=== PATIENT | female | born 1970 | race Caucasian/White ===

== ENCOUNTER 2018-05-14 06:21 | Day surgery (SDC) | payer OTHER ==
[2018-05-13 15:55] LABS: Absolute Lymphocytes (CBC) 2.2 K/uL (0.7-4.9); Absolute Monocytes 0.6 K/uL (0.1-1.3); Absolute Neutrophil 5.5 K/uL (1.8-8.0); Basophils % 0.6 % (0-1.3); Eosinophils % 0.6 % (0-4.4); Hematocrit 41.8 % (36.0-45.0); Lymphocytes % 25.7 % (15.3-44.8); MCH 30.9 pg (27.0-35.0); MCV 88.4 fL (80-100); MPV 9.2 fL (7.6-11.3); Monocytes % 7.4 % (3.3-12.3); RBC Red Blood Cell Count 4.73 M/uL (3.86-4.86)
[2018-05-14] MEDS ORDERED: CEFAZOLIN/SWI 1gm 1 GM/10 ML SYR IV SCH (06:30)
[2018-05-14] MEDS ORDERED: CEFAZOLIN/SWI 1gm 1 GM/10 ML SYR ONE (06:39)
[2018-05-14] MEDS ORDERED: Ringers Lactate 1,000 ML IV ONE ×2 (06:39→08:27)
[2018-05-14] MEDS ORDERED: BUPIVACAINE 0.5% PF 10 ML VIAL ONE (06:57)
[2018-05-14] MEDS ORDERED: PROPOFOL 200 MG/20 ML VIAL IV ONE (07:06)
[2018-05-14] MEDS ORDERED: MIDAZOLAM HCL 2 MG/2 ML INJ ONE ×2 (07:07)
[2018-05-14] MEDS ORDERED: FENTANYL CITR 100 MCG/2 ML ONE (07:07)
[2018-05-14] MEDS ORDERED: HYDROCODONE/APAP 7.5/325 MG TAB ONE (08:16)
--- NOTE | 2018-05-14 18:36 | OP ---
Date of Procedure: 05/14/2018 Surgeon: Scott Cody MD Preoperative Diagnosis: Poor IV access, status post Port-A-Cath placement. Postoperative Diagnosis: Poor IV access, status post Port-A-Cath placement. Procedure: Removal of right chest Port-A-Cath. Estimated Blood Loss: Minimal. Specimen: Port-A-Cath device. Findings: Normal anatomy. Anesthesia: MAC. Complications: None. Disposition: The patient tolerated the procedure in stable condition and was taken to recovery in go od general condition. Procedure In Detail: The patient was brought to the OR and placed in supine position. MAC anesthesi a was begun. The patient was prepped and draped in the sterile fashion. Marcaine 0.5% was infiltrat ed locally. A 15-blade was used to make a 3 cm incision on the right anterior chest. Subcutaneous t issue divided. The Port-A-Cath device was identified and freed from the surrounding tissue with michelle p and blunt dissection, removed, and sent to Pathology for identification. Wound irrigated. Bleedin g controlled with cautery. A 3-0 chromic used to approximate the subcutaneous tissue and close the s kin. Sterile dressing was applied. The patient was awakened and taken to Recovery in good general c ondition. Discharge Note: The patient will go to Day Surgery and home when stable. Disposition: Home. Condition: Stable. Discharge Instructions: Resume home medications and diet. Activity as tolerated. No heavy lifting. Remove outer dressing in 2 days. Shower. Keep wound clean and dry. Keep Steri-Strips on at all t imes. Tylenol No. 3 one tablet p.o. q.4 p.r.n. pain. Follow up in my office in 2 weeks. Call for a ppointment. /MODL Voice ID: [id number] Report ID: [id number]
== END 2018-05-14 08:39 | disposition home or self-care (01) ==
LOC: OR 06:21
PROVIDERS: ATTEND Surgery
PROC: 02PY33Z Removal of Infusion Device from Great Vessel, Percutaneous Approach (ICD-10-PCS; 2018-05-14)
PROC: 0JPT0WZ Removal of Totally Implantable Vascular Access Device from Trunk Subcutaneous Tissue and Fascia, Open Approach (ICD-10-PCS; principal; 2018-05-14 07:30)
DX: Z45.2 Encounter for adjustment and management of vascular access device (principal); E07.9 Disorder of thyroid, unspecified; Z98.84 Bariatric surgery status
CPT/HCPCS: 36415; 85025; 88300; J0690; J2250; J3010

== ENCOUNTER 2018-09-06 17:10 | Emergency (ER) | payer OTHER ==
[2018-09-06] MEDS ORDERED: MAGNE/ALUM HYDROXD 30 ML UCUP ONE (18:07)
[2018-09-06] MEDS ORDERED: ONDANSETRON 4 MG/2 ML VIAL ONE ×2 (18:08→19:41)
[2018-09-06] MEDS ORDERED: FAMOTIDINE 20 MG/2 ML VIAL IV ONE (18:08)
[2018-09-06] MEDS ORDERED: LIDOCAINE VISCOUS 2% SOLN 15 ML UDC ONE (18:08)
[2018-09-06] MEDS ORDERED: NA CHLORIDE 0.9% 1,000 ML ONE (18:08)
[2018-09-06 18:23] LABS: Absolute Lymphocytes (CBC) 1.1 K/uL (0.7-4.9); Absolute Neutrophil 10.6 K/uL (1.8-8.0); Basophils % 0.3 % (0-1.3); Eosinophils % 0.6 % (0-4.4); Hematocrit 45.7 % (36.0-45.0); Lymphocytes % 8.5 % (15.3-44.8); MPV 8.4 fL (7.6-11.3); Monocytes % 7.7 % (3.3-12.3); RBC Red Blood Cell Count 5.16 M/uL (3.86-4.86)
[2018-09-06 18:33] LABS: Protime INR 1.01
[2018-09-06 18:43] LABS: ALT/SGPT 17 U/L (12-78); AST/SGOT 16 U/L (15-37); Albumin 3.6 g/dL (3.4-5.0); Alkaline Phosphatase 70 U/L (45-117); BUN Blood Urea Nitrogen 11 mg/dL (7-18); Bicarbonate 26 mmol/L (21-32); Bilirubin Direct 0.1 mg/dL (0-0.2); Bilirubin Total 0.5 mg/dL (0.2-1.0); Glucose Level 103 mg/dL (74-106); Magnesium 2.1 mg/dL (1.8-2.4); NT PRO-BNP 105 pg/mL (<125); Potassium 3.9 mmol/L (3.5-5.1); Protein, Total 7.2 g/dL (6.4-8.2); Sodium Level 139 mmol/L (136-145); Troponin (Emerg Dept Use Only) < 0.02 ng/mL (0.0-0.045)
--- NOTE | 2018-09-06 18:50 | RAD REPORT ---
EXAM DESCRIPTION: Brooks Single View09/06/2018 6:02 pm CLINICAL HISTORY: Chest pain COMPARISON: none FINDINGS: The lungs appear clear of acute infiltrate. The heart is normal size IMPRESSION: No acute abnormalities displayed
--- NOTE | 2018-09-06 20:56 | EDPHYS ---
Physician Documentation [facility] Name: Laura Mukherjee Age: 48 yrs Sex: Female : 1970 Arrival Date: 09/06/2018 Time: 17:11 Bed 27 Private MD: Basilio Martínez V ED Physician Adilene Kruse HPI: 09/06 17:46 This 48 yrs old Female presents to ER via Wheelchair with complaints of Chest ma2 Pressure, Jaw Pain, Diarrhea. 17:46 The patient or guardian reports chest pain that is located primarily in the epigastric ma2 area. Onset: gradually, 3 hour(s) ago. The pain does not radiate. The chest pain is described as burning. Duration: The patient or guardian reports a single episode. Severity of pain: At its worst the pain was moderate in the emergency department the pain is unchanged. 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 - Social history:: Smoking status: Patient/guardian denies using tobacco, Patient/guardian denies using alcohol, street drugs, The patient lives with family. - Ebola Screening: : No symptoms or risks identified at this time. - Family history:: not pertinent. ROS: 17:46 Constitutional: Negative for fever, chills, and weight loss, Eyes: Negative for injury, ma2 pain, redness, and discharge, : Negative for injury, bleeding, discharge, and swelling. 17:46 Cardiovascular: Positive for Negative for chest pain, edema, palpitations, acute changes. 17:46 Abdomen/GI: Positive for abdominal pain, nausea, vomiting, and diarrhea, Negative for abdominal pain, nausea and vomiting, vomiting, diarrhea, abdominal cramps, rectal pain, bowel incontinence, acute changes. 17:46 All other systems are negative. Exam: 17:46 Constitutional: This is a well developed, well nourished patient who is awake, alert, ma2 and in no acute distress. Chest/axilla: Normal chest wall appearance and motion. Nontender with no deformity. No lesions are appreciated. Cardiovascular: Regular rate and rhythm with a normal S1 and S2. No gallops, murmurs, or rubs. Normal PMI, no JVD. No pulse deficits. Respiratory: Lungs have equal breath sounds bilaterally, clear to auscultation and percussion. No rales, rhonchi or wheezes noted. No increased work of breathing, no retractions or nasal flaring. Abdomen/GI: Soft, non-tender, with normal bowel sounds. No distension or tympany. No guarding or rebound. No evidence of tenderness throughout. MS/ Extremity: Pulses equal, no cyanosis. Neurovascular intact. Full, normal range of motion. Neuro: Awake and alert, GCS 15, oriented to person, place, time, and situation. Cranial nerves II-XII grossly intact. Motor strength 5/5 in all extremities. Sensory grossly intact. Cerebellar exam normal. Normal gait. Vital Signs: 17:22 BP 160 / 84; Pulse 102; Resp 18 S; Temp 98.2(TE); Pulse Ox 98% on R/A; Weight 102.51 kg aa5 (R); Height 5 ft. 6 in. (167.64 cm) (R); Pain 3/10; 18:30 BP 162 / 90; Pulse 100; Resp 19; Pulse Ox 99% on R/A; kr2 19:30 BP 148 / 87; Pulse 94; Resp 17; Pulse Ox 100% ; kr2 21:13 BP 154 / 82; Pulse 98; Resp 17; Pulse Ox 99% on R/A; kr2 17:22 Body Mass Index 36.48 (102.51 kg, 167.64 cm) aa5 MDM: 17:28 Patient medically screened. ma2 17:46 Differential diagnosis: abnormal EKG, congestive heart failure cholecystitis, ma2 gastroesophageal reflux disease (GERD), stable angina. The patient's pulmonary embolism risk score was calculated as follows: No Risks (0 Pts). RONN Risk Score: not applicable. 20:55 Data reviewed: vital signs, nurses notes, lab test result(s), EKG, radiologic studies. ma2 Counseling: I had a detailed discussion with the patient and/or guardian regarding: the historical points, exam findings, and any diagnostic results supporting the discharge/admit diagnosis, the presence of at least one elevated blood pressure reading (>120/80) during this emergency department visit, the need for outpatient follow up. 09/06 17:35 Order name: Basic Metabolic Panel; Complete Time: 19:12 ma2 09/06 17:35 Order name: CBC with Diff; Complete Time: 18:32 ma2 09/06 17:35 Order name: LFT's; Complete Time: 19:12 ma2 09/06 17:35 Order name: Magnesium; Complete Time: 19:12 ma2 09/06 17:35 Order name: NT PRO-BNP; Complete Time: 19:12 ma2 09/06 17:35 Order name: PT-INR; Complete Time: 18:39 ma2 09/06 17:35 Order name: Troponin (emerg Dept Use Only); Complete Time: 19:12 ma2 09/06 17:35 Order name: XRAY Chest (1 view); Complete Time: 19:12 ma2 09/06 19:47 Order name: Troponin (emerg Dept Use Only); Complete Time: 20:55 ma2 09/06 17:35 Order name: EKG; Complete Time: 17:35 ma2 09/06 17:35 Order name: Cardiac monitoring; Complete Time: 18:34 ma2 09/06 17:35 Order name: EKG - Nurse/Tech; Complete Time: 17:37 ma2 09/06 17:35 Order name: IV Saline Lock; Complete Time: 18:34 ma2 09/06 17:35 Order name: Labs collected and sent; Complete Time: 18:34 ma2 09/06 17:35 Order name: O2 Per Protocol; Complete Time: 18:34 ma2 09/06 17:35 Order name: O2 Sat Monitoring; Complete Time: 18:34 ma2 Administered Medications: 18:33 Drug: Pepcid 20 mg Route: IVP; Site: right forearm; mg2 19:30 Follow up: Response: No adverse reaction; Pain is decreased kr2 18:33 Drug: GI Cocktail without - (Maalox Suspension 30 ml, Lidocaine Liquid 2 % 15 mg2 ml) Route: PO; 19:30 Follow up: Response: No adverse reaction; Pain is decreased kr2 18:33 Drug: Zofran 4 mg Route: IVP; Site: right forearm; mg2 19:00 Follow up: Response: No adverse reaction kr2 18:34 Drug: NS 0.9% 1000 ml Route: IV; Rate: 1 bolus; Site: right forearm; mg2 19:45 Follow up: Response: No adverse reaction; IV Status: Completed infusion kr2 19:34 Drug: Zofran 4 mg Route: IVP; Site: right forearm; kr2 20:00 Follow up: Response: No adverse reaction; Nausea is decreased kr2 Disposition: 09/06/18 20:55 Discharged to Home. Impression: Diarrhea, unspecified. - Condition is Stable. - Discharge Instructions: Diarrhea, Adult. - Prescriptions for Tylenol- Codeine #3 300-30 mg Oral Tablet - take 2 tablet by ORAL route every 6 hours As needed; 30 tablet. Zofran 4 mg Oral Tablet - take 1 tablet by ORAL route every 12 hours As needed; 20 tablet. - Medication Reconciliation Form, Thank You Letter, Antibiotic Education, Prescription Opioid Use form. - Follow up: Private Physician; When: Tomorrow; Reason: Continuance of care. Signatures: Dispatcher [employer] EDHoney Nathan RN RN aa5 Amber Ballesteros RN RN kr2 Adilene Kruse MD MD ma2 Tex Jung RN RN mg2 Corrections: (The following items were deleted from the chart) 21:16 20:55 09/06/2018 20:55 Discharged to Home. Impression: Diarrhea, unspecified. Condition kr2 is Stable. Forms are Medication Reconciliation Form, Thank You Letter, Antibiotic Education, Prescription Opioid Use. Follow up: Private Physician; When: Tomorrow; Reason: Continuance of care. ma2
--- NOTE | 2018-09-06 20:56 | ER ---
Nurse's Notes [facility] Name: Laura Mukherjee Age: 48 yrs Sex: Female : 1970 Arrival Date: 09/06/2018 Time: 17:11 Bed 27 Private MD: Basilio Martínez V Diagnosis: Diarrhea, unspecified Presentation: 09/06 17:20 Presenting complaint: Patient states: chest pain, left jaw, and left ear pain that aa5 began 30 minutes ago. 17:20 Transition of care: patient was not received from another setting of care. Onset of aa5 symptoms was September 06, 2018. Risk Assessment: Do you want to hurt yourself or someone else? Patient reports no desire to harm self or others. Initial Sepsis Screen: Does the patient meet any 2 criteria? No. Patient's initial sepsis screen is negative. Does the patient have a suspected source of infection? No. Patient's initial sepsis screen is negative. Care prior to arrival: None. 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 - Social history:: Smoking status: Patient/guardian denies using tobacco, Patient/guardian denies using alcohol, street drugs, The patient lives with family. - Ebola Screening: : No symptoms or risks identified at this time. - Family history:: not pertinent. Screenin:35 Abuse screen: Denies threats or abuse. Denies injuries from another. Nutritional mg2 screening: No deficits noted. Tuberculosis screening: No symptoms or risk factors identified. Fall Risk IV access (20 points). Assessment: 17:40 General: Appears in no apparent distress. uncomfortable, well groomed, well developed, kr2 well nourished, Behavior is cooperative, crying. Pain: Complains of pain in chest Pain radiates to jaw Pain currently is 8 out of 10 on a pain scale. Quality of pain is described as burning, pressure, Pain began gradually, Is continuous, Alleviated by nothing. Neuro: Level of Consciousness is awake, alert, obeys commands, Oriented to person, place, time, situation, Appropriate for age. Cardiovascular: Heart tones S1 S2 present Capillary refill < 3 seconds in bilateral fingers Patient's skin is warm and dry. Rhythm is sinus rhythm. Respiratory: Airway is patent Respiratory effort is even, unlabored, Respiratory pattern is regular, symmetrical. GI: Abdomen is flat, non-distended, Bowel sounds present X 4 quads. Reports belching a lot. : Denies burning with urination. EENT: Oral mucosa is moist. Derm: Skin is intact, is healthy with good turgor, Skin is pink, warm \T\ dry. Musculoskeletal: Circulation, motion, and sensation intact. 18:38 Reassessment: Patient appears in no apparent distress at this time. Patient and/or kr2 family updated on plan of care and expected duration. Pain level reassessed. Patient is alert, oriented x 3, equal unlabored respirations, skin warm/dry/pink. Patient states feeling better. 19:30 Reassessment: Patient appears in no apparent distress at this time. Patient and/or kr2 family updated on plan of care and expected duration. Pain level reassessed. Patient is alert, oriented x 3, equal unlabored respirations, skin warm/dry/pink. Patient denies pain at this time. Patient states feeling better. 20:30 Reassessment: Patient appears in no apparent distress at this time. Patient and/or kr2 family updated on plan of care and expected duration. Pain level reassessed. Patient is alert, oriented x 3, equal unlabored respirations, skin warm/dry/pink. Patient states feeling better. 21:13 Reassessment: Patient appears in no apparent distress at this time. Patient and/or kr2 family updated on plan of care and expected duration. Pain level reassessed. Patient is alert, oriented x 3, equal unlabored respirations, skin warm/dry/pink. Patient denies pain at this time. Vital Signs: 17:22 BP 160 / 84; Pulse 102; Resp 18 S; Temp 98.2(TE); Pulse Ox 98% on R/A; Weight 102.51 kg aa5 (R); Height 5 ft. 6 in. (167.64 cm) (R); Pain 3/10; 18:30 BP 162 / 90; Pulse 100; Resp 19; Pulse Ox 99% on R/A; kr2 19:30 BP 148 / 87; Pulse 94; Resp 17; Pulse Ox 100% ; kr2 21:13 BP 154 / 82; Pulse 98; Resp 17; Pulse Ox 99% on R/A; kr2 17:22 Body Mass Index 36.48 (102.51 kg, 167.64 cm) aa5 ED Course: 17:11 Patient arrived in ED. sb2 17:12 Basilio Martínez MD is Private Physician. sb2 17:21 Arm band placed on. aa5 17:23 Triage completed. aa5 17:28 Adilene Kruse MD is Attending Physician. ma2 17:37 EKG done, by ED staff, reviewed by Adilene Kruse MD. dh3 17:40 Patient has correct armband on for positive identification. Placed in gown. Bed in low kr2 position. Call light in reach. Side rails up X 1. surveillance system monitor on. Pulse ox on. NIBP on. 17:40 Patient maintains SpO2 saturation greater than 95% on room air. kr2 17:59 X-ray completed. Portable x-ray completed in exam room. Patient tolerated procedure sg4 well. 18:02 XRAY Chest (1 view) In Process Unspecified. EDMS 18:09 Amber Ballesteros, RN is Primary Nurse. kr2 18:34 No provider procedures requiring assistance completed. Inserted saline lock: 22 gauge mg2 in right forearm, using aseptic technique. Blood collected. 21:10 IV discontinued, intact, bleeding controlled, No redness/swelling at site. Pressure kr2 dressing applied. Administered Medications: 18:33 Drug: Pepcid 20 mg Route: IVP; Site: right forearm; mg2 19:30 Follow up: Response: No adverse reaction; Pain is decreased kr2 18:33 Drug: GI Cocktail without - (Maalox Suspension 30 ml, Lidocaine Liquid 2 % 15 mg2 ml) Route: PO; 19:30 Follow up: Response: No adverse reaction; Pain is decreased kr2 18:33 Drug: Zofran 4 mg Route: IVP; Site: right forearm; mg2 19:00 Follow up: Response: No adverse reaction kr2 18:34 Drug: NS 0.9% 1000 ml Route: IV; Rate: 1 bolus; Site: right forearm; mg2 19:45 Follow up: Response: No adverse reaction; IV Status: Completed infusion kr2 19:34 Drug: Zofran 4 mg Route: IVP; Site: right forearm; kr2 20:00 Follow up: Response: No adverse reaction; Nausea is decreased kr2 Outcome: 20:55 Discharge ordered by . ma2 21:15 Discharged to home via wheelchair, with family. kr2 21:15 Condition: good 21:15 Discharge instructions given to patient, family, Instructed on discharge instructions, follow up and referral plans. medication usage, Demonstrated understanding of instructions, follow-up care, medications, Prescriptions given X 2. 21:16 Patient left the ED. kr2 Signatures: Dispatcher [employer] EDHoney Nathan, RN RN aa5 Olivia Ivey 3 Amber Ballesteros RN RN kr2 Adilene Kruse MD MD ma2 Mi Kowalski2 Tex Jung RN RN mg2 Shanon Baeza 4
--- NOTE | 2018-09-07 10:03 | EKG ---
Test Date: 2018-09-06 Test Time: 17:29:57 Cellophane Bag Machine Operator: LEONOR MEASUREMENT RESULTS: Intervals: Rate: 100 CT: 182 QRSD: 96 QT: 360 QTc: 464 Belva: P: 50 CT: 182 QRS: -5 T: 28 INTERPRETIVE STATEMENTS: Normal sinus rhythm Inferior infarct, age undetermined Anterolateral infarct, age undetermined Abnormal ECG No previous ECG available for comparison Electronically Signed On 09-07-18 09:54:40 BATCH PLANT OPERATOR by Donato Hays
== END 2018-09-06 21:16 | disposition home or self-care (01) ==
LOC: ER 17:10
DX: R19.7 Diarrhea, unspecified (principal); R94.31 Abnormal electrocardiogram [ECG] [EKG]; Z98.84 Bariatric surgery status
CPT/HCPCS: 36415; 71045; 80048; 80076; 83735; 83880; 84484; 85025; 85610; 93005; 96361; 96374; 96375; 99285; J2405; J7030